=== PATIENT | male | born 1945 | race Hispanic/Latino ===

== ENCOUNTER 2016-12-06 05:51 | Inpatient (IN) | payer MEDICARE ==
[2016-12-02 10:57] LABS: Basophils % (Auto) 0.6 % (0.0-1.8); Eosinophils % (Auto) 2.8 % (0.0-4.3); Hemoglobin 13.6 gm/dl (11.8-15.2); Mean Corpuscular HGB Conc 34 % (32-34); Mean Corpuscular Hemoglobin 30 pg (28-32); Mean Corpuscular Volume 87 fl (84-94); Platelet Count 185 K/mm3 (140-440); Red Cell Distribution Width 14.1 % (13.2-15.2); White Blood Count 6.3 K/mm3 (4.5-11.0)
[2016-12-02 11:01] LABS: INR 0.96 (0.87-1.13)
[2016-12-02 11:12] LABS: Anion Gap 15 mmol/L; BUN/Creatinine Ratio 11.25; Blood Urea Nitrogen 9 mg/dL (9-20); Calcium 9.7 mg/dL (8.4-10.2); Carbon Dioxide 28 mmol/L (22-30); Chloride 98.3 mmol/L (98-107); Glucose 95 mg/dL (75-100); Potassium 4.2 mmol/L (3.6-5.0); Sodium 137 mmol/L (137-145)
--- NOTE | 2016-12-02 11:20 | Anesthesia Consultation ---
Anesthesia Consult and Med Hx Date of service: 12/02/16 - Airway Anesthetic Teeth Evaluation: Dentures, Edentulous ROM Head & Neck: Adequate Mental/Hyoid Distance: Adequate Mallampati Class: Class II Intubation Access Assessment: Probably Good (FROM) - Pulmonary Exam CTA: Yes - Cardiac Exam Cardiac Exam: RRR - Pre-Operative Health Status ASA Pre-Surgery Classification: ASA3 Proposed Anesthetic Plan: General - Pre-Anesthesia Comment Pre-Anesthesia Comments: Cardiac clearance on 12/01/16. EJ 59%. - Pulmonary Hx Smoking: Yes (Smoked for 60+ years. Formerly 4 packs/day. Currently 1 PPD.) SOB: Yes COPD: Yes (Chronic bronchitis, no inhaler use) Hx Pneumonia: Yes (in past) Hx Sleep Apnea: No - Cardiovascular System Hx Hypertension: Yes (No meds) Hx Coronary Artery Disease: Yes (s/p OK) Hx Heart Attack/AMI: Yes (1988 2x) Hx Percutaneous Transluminal Coronary Angioplasty (PTCA): Yes (within last 2 yrs , >1yr ago, 6x) Hx Cardia Arrhythmia: No Hx Peripheral Vascular Disease: Yes (claudication; s/p right AKA, s/p aorto- bifemoral bypass surgery) - Central Nervous System Hx Seizures: No CVA: Yes (mild stroke, denies residual issues) Hx Psychiatric Problems: No - Gastrointestinal Hx Gastroesophageal Reflux Disease: No - Endocrine Hx Renal Disease: No Hx Liver Disease: No Hx Non-Insulin Dependent Diabetes: No Hx Thyroid Disease: No - Hematic Hx Anemia: Yes (hx of blood transfusion in past) - Other Systems Hx Alcohol Use: Yes Hx Substance Use: No (high tolerance for percocet) Hx Cancer: No - Additional Comments Anesthesia Medical History Comments: NAC
[~2016-12-06 05:51] MED LIST: PEPCID PO NR; VERSED IV NR
[2016-12-06] MEDS ORDERED: ANCEF/STERILE WATER 2 GM/20 ML 2 GM/20 ML SYRINGE IV NR (06:00)
[2016-12-06] MEDS ORDERED: NACL BACTERIOSTATIC INFILTRATI ONE (06:19)
[2016-12-06] MEDS ORDERED: XYLOCAINE MPF 2% ONE (06:51)
[2016-12-06] MEDS ORDERED: ZEMURON IV ONE (06:51)
[2016-12-06] MEDS: NACL 0.9% 1000 ML 1,000 ML IV SCH (06:55)
[2016-12-06] MEDS ORDERED: DIPRIVAN 10 MG/ML IV ONE ×2 (07:03→07:54)
[2016-12-06] MEDS ORDERED: SUBLIMAZE ONE (07:03)
[2016-12-06] MEDS ORDERED: DILAUDID ONE (07:04)
[2016-12-06] MEDS ORDERED: PROVENTIL IH NR (07:15)
[2016-12-06] MEDS ORDERED: PAPAVERINE ONE (07:16)
[2016-12-06] MEDS ORDERED: MARCAINE 0.5% 0 ML INFILTRATI ONE (07:16)
[2016-12-06] MEDS ORDERED: PROTAMINE SULFATE ONE (07:16)
[2016-12-06] MEDS ORDERED: NACL 0.9% 250ML 0 ML ONE (07:17)
[2016-12-06] MEDS ORDERED: XYLOCAINE 1% MPF 5 mL ONE (07:17)
[2016-12-06] MEDS ORDERED: NACL ONE (07:17)
[2016-12-06] MEDS ORDERED: HEPARIN 10,000 UNITS/10 ML ONE ×2 (07:17→07:55)
[2016-12-06] MEDS ORDERED: XYLOCAINE 1%/ EPI 1:100,000 INFILTRATI ONE (07:17)
[2016-12-06] MEDS ORDERED: NACL 0.9% 1000 ML 1,000 ML ONE ×2 (07:17→09:40)
[2016-12-06] MEDS ORDERED: RIFADIN ONE (07:17)
[2016-12-06] MEDS ORDERED: GELFOAM TP ONE (07:18)
[2016-12-06] MEDS ORDERED: THROMBIN (BOVINE) TP ONE (07:18)
[2016-12-06] MEDS ORDERED: SODIUM BICARBONATE ONE (07:18)
[2016-12-06] MEDS ORDERED: NITROGLYCERIN SYRINGE 6 ML ONE (07:19)
[2016-12-06] MEDS ORDERED: PROAIR IH ONE (07:44)
[2016-12-06] MEDS ORDERED: MARCAINE-EPI/PF 0.5%-1:200,000 INFILTRATI ONE (07:45)
[2016-12-06] MEDS ORDERED: VERSED IV ONE (07:52)
[2016-12-06] MEDS ORDERED: NACL 0.9% 100 ML ONE (08:27)
[2016-12-06] MEDS ORDERED: NEO SYNEPHRINE ONE (08:27)
[2016-12-06] MEDS ORDERED: XYLOCAINE 1% 20 mL ONE (08:35)
[2016-12-06] MEDS ORDERED: XYLOCAINE 1% 20 mL INFILTRATI ONE (08:52)
[2016-12-06] MEDS ORDERED: NACL 0.9% IR ONE (08:52)
[2016-12-06] MEDS ORDERED: HEPARIN 10,000 UNITS/10 ML 4,000 UNIT in NACL 0.9% 1000 ML 1,000 ML IR ONE (08:53)
[2016-12-06] MEDS ORDERED: RIFADIN 600 MG in NACL 0.9% 50 ML IR ONE (08:54)
--- NOTE | 2016-12-06 08:54 | Admit Criteria Form ---
Admission Criteria Documentation: AMBULATORY SURGERY EXCEPTION CRITERIA Ambulatory Surgery Exception Criteria ( Place 'X' for any and all applicable criteria): Surgery or procedure performed on ambulatory basis may require inpatient stay for[A] ANY ONE of the following(1)(2)(3)(4)(5)(6)(7)(8)(9): [X] I. A preoperative situation, condition, or finding that warrants inpatient stay as indicated by ANY ONE of the following: [X] a) Inpatient care needed because of severity of a disease or condition rather than the surgery (eg, severe cardiac or respiratory disease, severe infection) (15) (16 ) (17) (18) [] b) Emergent procedure (eg, angioplasty for acute ischemia)(19) [] c) Complex surgical approach or situation as indicated by ANY ONE of the following(3): [] i) Open approach needed instead of usual endoscopic, transcatheter, or other less invasive procedure [] ii) Difficult approach because of previous operation [] iii) Airway monitoring required after open neck procedures(20)(21) [] iv) Large mass requiring unusually extensive dissection [] v) Additional complicating feature requiring inpatient care (eg, drain management)(22(23): [X] d) Major surgery in a pt with high anesthetic risk as indicated by ANY ONE of the following (2)(3)(5)(7)(8): [X] i) ASA risk class III or higher (severe systemic disease impairing function) [D] [] ii) Advanced age (eg, older than 85 years)(14)(24) [] iii) Symptomatic heart failure(25) [] iv) Symptomatic asthma or COPD(8)(21) [] v) Morbid obesity with hemodynamic or respiratory problems(20)( 21)(26)(27) [] vi) Obstructive sleep apnea(20)(21) [] vii) Former premature infants who are younger than 60 weeks [] viii) High risk for severe postoperative abnormalities (eg, severe postoperative hypocalcemia after parathyroidectomy for severe hyperparathyroidism)(27)( 28) [] ix) Unstable angina(25) [] e) Drug-related risk requiring inpatient stay as indicated by ANY ONE of the following(5)(10)(14)(32)(33) [] i) Procedure requires discontinuing drugs or other therapy (eg , antiarrhythmic medication, antiseizure medication), which necessitates inpatient observation or treatment.(18)(31) [] ii) Major surgery and high risk drug use as indicated by ANY ONE of the following: [] 1) Active abuse of cocaine or similar drug [] 2) Monoamine oxidase inhibitor use [] 3) Other drug identified as posing risk [] f) Inadequate outpatient care situation as indicated by ANY ONE of the following(5)(10)(14)(32)(33) [] i) Patient lives remote from medical facility and procedure has urgent complication potential, and temporary nearby residence cannot be arranged [] ii) Patient will have postprocedure incapacitation and inadequate assistance at home, or alternative level of care cannot be arranged. [] iii) Patient will have long general anesthesia or procedure side effect resolution time, and competent person to stay with patient on first postoperative night at home or alternative level of care cannot be arranged. []iv) Other inadequate outpatient situation that cannot be handled by other means [] II. A perioperative event, condition, or finding that warrants inpatient stay as indicated by ANY ONE of the following (1)(2)(3): [] a) Inadequate physiologic recovery: cardiovascular, respiratory, or hemodynamic status not normal or near preoperative baseline(18) [] b) Hemodynamic instability [] c) Patient not alert with near normal or baseline mental status [] d) Temperature not normal or as expected and not appropriate for outpatient treatment of condition [] e) Ambulatory or appropriate activity level status not yet achieved post procedure [E](34)(35)(36) [] f) Operative site not appropriate (eg, unexpected or excessive drainage or bleeding) [] g) Postoperative effects not resolved or adequately managed (eg, significant pain or vomiting not appropriate for outpatient or next level of care)(10)(12) [] h) Complicating features requiring inpatient care as indicated by ANY ONE of the following(37): [] i) Severe complications of procedure (eg, bowel injury, airway compromise, vascular injury,severe hemorrhage) [] ii) Extensive (eg, dissection far beyond usual scope of procedure ) or prolonged (eg, 120 minutes beyond usual) surgery needed requiring inpatient postoperative care [] iii) Conversion to an open or complex procedure that requires inpatient care (eg, open vs laparoscopic cholecystectomy, abdominal vs vaginal hysterectomy)(38) [] iv) Comorbid condition or test result identified during or post procedure that requires inpatient care (7) [] v) Malignant hyperthermia(30) [] vi) Other complicating feature requiring inpatient care(22)(23) Inpatient stay may be needed until ALL of the following are present (1)(2)(3)(4) (5)(6)(10)(14)(33)(40): []a) Physiologic recovery: cardiovascular, respiratory, and hemodynamic status normal or near preoperative baseline []b) Hemodynamic stability []c) Patient alert, with near normal or baseline mental status []d) Temperature appropriate: patient afebrile or temperature appropriate for outpt treatment of condition []e) Activity level appropriate: ambulatory or appropriate activity level post procedure []f) Operative site appropriate as indicated by ALL of the following: []i) Site dry or with expected drainage []ii) Any blood noted is as expected for procedure. []g) Postoperative effects resolved or managed as indicated by ALL of the following: []i) Pain management appropriate for outpatient (or next level of) care(10) []ii) Minimal nausea and vomiting: if present, successfully treated with oral medication(12) []iii) Headache, dizziness, or drowsiness (if present) are mild. []h) Voiding status acceptable as indicated by ANY ONE of the following: []i) Voiding spontaneously []ii) No voiding but instructions given for follow-up in 6 to 8 hours []iii) Urinary catheter in place, and instructions given for follow-up []i) Complicating features requiring inpatient care manageable at a lower level of care(37) []j) Comorbid conditions manageable at a lower level of care(37) The original [facility] content created by [employer] has been revised. The portions of the content which have been revised are identified through the use of italic text or in bold, and [facility] has neither reviewed nor approved the modified material. All other unmodified content is copyright [facility]. Please see references footnoted in the original [facility] edition 2016 Admission Criteria Met: Yes
[2016-12-06] MEDS ORDERED: ePHEDrine SULFATE ONE (09:22)
[2016-12-06] MEDS ORDERED: NARCAN 0.4 MG/1 ML IV PRN ×2 (10:35→11:54)
[2016-12-06] MEDS ORDERED: MORPHINE IV PRN (10:35)
[2016-12-06] MEDS ORDERED: ULTRAM PO PRN (10:35)
[2016-12-06] MEDS ORDERED: ZOFRAN IV PRN (10:35)
[2016-12-06] MEDS ORDERED: NORCO 7.5/325 PO PRN (10:35)
--- NOTE | 2016-12-06 10:53 | Operative Report ---
Operative Report Operative Report: Date of Procedure: 12/06/2016 Pre-operative Diagnosis: Right AKA's Ischemic Stump Pain Post-operative Diagnosis: Same Procedure(s): Left Femoral to Right Femoral Artery Bypass with 8 mm Ringed PTFE Surgeon: Natanael Bolanos M.D. Mat Cleaning Machine Operator: Krystyna Borden M.D. Anesthesia: Spinal Anesthesia, MAC EBL: 200 mL Counts: Correct Complications: None Condition: Stable Findings: Successful creation of left to right femoral bypass with excellent Doppler signal in the profunda artery on the right that augmented with compression of the graft. Specimen: Right femoral plaque and femoral anastomosis of aortobifemoral bypass graft since pathology. Indication: The patient is a 71-year-old male with a history of peripheral vascular disease and an aortobifemoral bypass graft. 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 He has had pain in the stump does not resolved and an area duplex demonstrated significantly diminished flow in the right profunda artery. There is no option for endovascular intervention so he was offered a left femoral to right femoral bypass. He was given the risks, benefits, and alternative procedures and consented to procedure. Description of Procedure: The patient was brought to the operating room and laid in supine position. He previously had spinal anesthesia placed in the preoperative area. After he was given adequate sedation his bilateral groins and thighs were prepped and draped in normal sterile fashion. Longitudinal incision was created in the right groin through his previous incision and carried down to the cade of the aortobifemoral graft by sharp dissection. I then dissected out the profunda, SFA, and common femoral artery using sharp dissection. All vessels were then controlled vessels. I created a longitudinal incision in the left groin through a previous incision and carried this down to the left limb of the aortobifemoral graft and controlled the limb with 2 vessels. I dissected down to the anterior abdominal wall bilaterally and created a subcutaneous tunnel along the anterior surface of the abdominal wall just above the pubic symphysis and then pulled the 8 mm ringed PTFE through the tunnel. The graft was in position to ensure that there was no kinking or twisting. At this point systemically heparinized the patient with IV heparin. The used 2 Satinsky clamps to control flow in the left aortobifemoral limb and created a arteriotomy using 11 blade and Owens scissors. I beveled the graft and created an end to side anastomosis using 2 5-0 Prolene running fashion. After completing the anastomosis I removed the clamps allow flow into the graft which had excellent inflow. I then clamped the graft near the anastomosis and packed the groin with quick clot to achieve hemostasis. I then cut the graft to length and removed the rings on the distal half of the graft. I transected the previous aortobifemoral bypass graft off of the femoral anastomosis. Multi, from artery was occluded as well as the SFA and profunda artery. A Davin knife was then used to free the plaque from the arterial wall at this point there was some backbleeding noted from the profunda artery. I beveled the graft and then created end to side anastomosis using 2 6-0 Prolene as a running fashion. Prior to completing the anastomosis I flushed the arterial inflow as well as the profunda artery and then flushed the graft with heparinized saline. I completed the anastomosis in the area removed all clamps allow flow into the profunda artery which had an excellent multiphasic Doppler signal that augmented with compression of the graft. Hemostasis within the wound was achieved with a combination of quick clot and FloSeal. Once hemostasis was achieved both groins were closed in 3 layers using a 3-0 Vicryl running fashion and the deep layer, 3-0 Vicryl running fashion deep dermal layer, and a 4-0 Monocryl in running fashion subcuticular. Both wounds were then dressed with Dermabond. The patient tolerated the procedure well. All sponge, needle, and instrument counts were correct. The patient was taken to the recovery area in stable condition.
[2016-12-06] MEDS ORDERED: SODIUM CHLORIDE FLUSH SYRINGE 10 ML IV PRN (11:54)
--- NOTE | 2016-12-06 11:57 | Post Anesthesia Evaluation ---
- Post Anesthesia Evaluation Patient Participated: Yes Airway Patent: Yes Stable Respiratory Function: Yes Nausea/Vomiting: No Temp > 96.8F: Yes Pain Manageable: Yes Adequeate Hydration: Yes Anesthesia Complications: No
[2016-12-06] MEDS ORDERED: NON-FORMULARY (Gabapentin [Gralise] 300 MG) PO SCH (14:00)
[2016-12-06] MEDS: NEURONTIN PO SCH (14:17)
[2016-12-06] MEDS: MORPHINE IV PRN (17:40)
[2016-12-06] MEDS: SUBLIMAZE 500 MCG in NACL 0.9% 90 ML EPIDURAL SCH (18:52)
[2016-12-07 06:16] LABS: Hematocrit 31.8 % (35.5-45.6); Hemoglobin 10.7 gm/dl (11.8-15.2)
[2016-12-07] MEDS: NACL 0.9% 1000 ML 1,000 ML IV SCH (06:22)
[2016-12-07] MEDS: NEURONTIN PO SCH ×3 (06:27→23:23)
[2016-12-07 06:29] LABS: Anion Gap 15 mmol/L; BUN/Creatinine Ratio 7.14; Blood Urea Nitrogen 5 mg/dL (9-20); Calcium 7.9 mg/dL (8.4-10.2); Carbon Dioxide 25 mmol/L (22-30); Chloride 103.9 mmol/L (98-107); Glucose 91 mg/dL (75-100); Potassium 3.7 mmol/L (3.6-5.0); Sodium 140 mmol/L (137-145)
[2016-12-07] MEDS: SUBLIMAZE 500 MCG in NACL 0.9% 90 ML EPIDURAL SCH (06:50)
--- NOTE | 2016-12-07 11:59 | Consultation ---
History of Present Illness - Reason for Consult Consult date: 12/07/16 ICU management Requesting physician: MELISA MCNEIL - History of Present Illness 71 y/o male status post vascular surgery admitted for monitoring in ICU. No acute events. BP stable. Has epidural in that is about to be removed. Remainder is negative. Past History Past Medical History: hyperlipidemia, other (neuropathy) Past Surgical History: Other (aka) Medications and Allergies Allergies Allergy/AdvReac Type Severity Reaction Status Date / Time No Known Allergies Allergy Unverified 04/23/16 15:21 Home Medications Medication Instructions Recorded Confirmed Last Taken Type HYDROcodone/APAP 7.5-325 [Hinkle 1 each PO Q6HR PRN #60 tablet 05/12/16 11/23/16 12/05/16 Rx 7.5/325] AtorvaSTATin [Lipitor] 40 mg PO QDAY 11/23/16 11/23/16 12/05/16 History Gabapentin [Gralise] 300 mg PO TID 11/23/16 11/23/16 12/05/16 History traMADol [Ultram] 50 mg PO Q4HR PRN 11/23/16 11/23/16 12/05/16 History Active Meds: Active Medications Acetaminophen/Hydrocodone Bitart (Hinkle 7.5/325) 1 each PO Q6HR PRN PRN Reason: Pain, Moderate (4-6) Atorvastatin Calcium (Lipitor) 40 mg PO QDAY [facility] Last Admin: 12/07/16 09:08 Dose: 40 mg Enoxaparin Sodium (Lovenox) 40 mg SUB-Q QDAY@0800 KISHA Gabapentin (Neurontin) 300 mg PO Q8HR KISHA Last Admin: 12/07/16 06:27 Dose: 300 mg Sodium Chloride (Nacl 0.9% 1000 Ml) 1,000 mls @ 42 mls/hr IV DIRECT KISHA Last Admin: 12/07/16 06:22 Dose: 42 mls/hr Fentanyl 500 mcg/ Sodium (Chloride) 100 mls @ 8 mls/hr EPIDURAL DIRECT KISHA PRN Reason: Protocol Last Infusion: 12/07/16 08:00 Dose: 8 mls/hr Sodium Chloride (Nacl 0.9% 1000 Ml) 1,000 mls @ 75 mls/hr IV DIRECT KISHA Morphine Sulfate (Morphine) 2 mg IV Q4H PRN PRN Reason: Pain, Moderate (4-6) Last Admin: 12/06/16 15:12 Dose: 2 mg Morphine Sulfate (Morphine) 4 mg IV Q4H PRN PRN Reason: Pain , Severe (7-10) Last Admin: 12/06/16 17:40 Dose: 4 mg Naloxone HCl (Narcan 0.4 Mg/1 Ml) 0.1 mg IV Q2MIN PRN PRN Reason: Res Rate </= 8 or 02 SAT < 92% Ondansetron HCl (Zofran) 4 mg IV Q8H PRN PRN Reason: Nausea And Vomiting Sodium Chloride (Sodium Chloride Flush Syringe 10 Ml) 10 ml IV PRN PRN PRN Reason: LINE FLUSH Tramadol HCl (Ultram) 50 mg PO Q4HR PRN PRN Reason: Pain Review of Systems All systems: negative Exam - Constitutional Vitals: Temp Pulse Resp BP Pulse Ox 98.9 F 94 H 20 93/54 99 12/07/16 08:00 12/07/16 10:10 12/07/16 10:10 12/07/16 10:10 12/07/16 10:43 General appearance: Present: no acute distress - EENT Eyes: Present: PERRL, EOM intact ENT: hearing intact, clear oral mucosa - Neck Neck: Present: supple, normal ROM - Respiratory Respiratory effort: normal Respiratory: bilateral: CTA - Cardiovascular Rhythm: regular Heart Sounds: Present: S1 & S2 - Extremities Extremities: abnormal (aka) - Abdominal General gastrointestinal: Present: soft, non-tender, normal bowel sounds Results - Labs CBC & Chem 7: 12/07/16 05:31 12/07/16 05:31 Labs: Abnormal lab results 12/07/16 12/07/16 Range/Units 05:31 05:31 Hgb 10.7 L (11.8-15.2) gm/dl Hct 31.8 L (35.5-45.6) % BUN 5 L (9-20) mg/dL Creatinine 0.7 L (0.8-1.5) mg/dL Calcium 7.9 L D (8.4-10.2) mg/dL Assessment and Plan 71 y/o male with PVD status post vascular surgery. 1. Epidural removal 2. OOB to chair 3. Hopeful they can be moved out of ICU today.
[2016-12-07] MEDS ORDERED: NACL 0.9% 1000 ML 1,000 ML IV SCH (12:00)
[2016-12-07] MEDS: LOVENOX SUB-Q SCH (14:10)
--- NOTE | 2016-12-07 15:04 | Progress Note ---
Assessment and Plan Pt s/p Fem-Fem bypass. His castro and Epideral were removed earlier this am. Bp remains a little low. Not drinking much, continue IVF for now. Hold transfer out of ICU until VS improved. - Patient Problems (1) Atherosclerosis of [place] arteries of the extremities with rest pain Current Visit: No Status: Acute Qualifiers: Peripheral atherosclerosis location: P Laterality: L Subjective Date of service: 12/07/16 Interval history: Pt eval'd early this am. Mild incisional and tunnel pain. Well tolerated. Attempted to get OOB with nurses help this am, but felt unsteady and requested to get back in bed. Objective - Constitutional Vitals: Vital Signs - 12hr 12/07/16 12/07/16 12/07/16 03:00 03:10 03:20 Temperature Pulse Rate 83 85 86 Respiratory 14 12 13 Rate Blood Pressure 108/56 108/56 108/56 O2 Sat by Pulse 96 96 96 Oximetry 12/07/16 12/07/16 12/07/16 03:30 03:40 03:50 Temperature Pulse Rate 84 90 82 Respiratory 13 13 13 Rate Blood Pressure 108/56 108/56 108/56 O2 Sat by Pulse 98 98 97 Oximetry 12/07/16 12/07/16 12/07/16 04:00 04:10 04:20 Temperature 98.5 F Pulse Rate 88 85 84 Respiratory 14 14 13 Rate Blood Pressure 92/56 92/56 92/56 O2 Sat by Pulse 96 96 96 Oximetry 12/07/16 12/07/16 12/07/16 04:30 04:40 04:50 Temperature Pulse Rate 83 87 85 Respiratory 13 13 13 Rate Blood Pressure 92/56 92/56 92/56 O2 Sat by Pulse 96 97 96 Oximetry 12/07/16 12/07/16 12/07/16 05:00 05:10 05:20 Temperature Pulse Rate 82 84 83 Respiratory 12 14 12 Rate Blood Pressure 101/57 101/57 101/57 O2 Sat by Pulse 95 95 Oximetry 12/07/16 12/07/16 12/07/16 05:30 05:40 05:50 Temperature Pulse Rate 91 H 98 H 95 H Respiratory 11 L 16 15 Rate Blood Pressure 101/57 101/57 101/57 O2 Sat by Pulse 98 99 99 Oximetry 12/07/16 12/07/16 12/07/16 06:00 06:10 06:20 Temperature Pulse Rate 92 H 93 H 93 H Respiratory 22 19 18 Rate Blood Pressure 109/55 109/55 109/55 O2 Sat by Pulse 96 96 95 Oximetry 12/07/16 12/07/16 12/07/16 06:30 06:40 06:50 Temperature Pulse Rate 87 91 H 90 Respiratory 16 18 16 Rate Blood Pressure 109/55 109/55 109/55 O2 Sat by Pulse 94 94 93 Oximetry 12/07/16 12/07/16 12/07/16 07:00 07:10 07:20 Temperature Pulse Rate 90 97 H 87 Respiratory 16 13 16 Rate Blood Pressure 88/51 99/54 99/54 O2 Sat by Pulse 94 97 95 Oximetry 12/07/16 12/07/16 12/07/16 07:30 07:40 07:50 Temperature Pulse Rate 91 H 96 H 90 Respiratory 20 17 18 Rate Blood Pressure 99/54 99/54 99/54 O2 Sat by Pulse 96 94 97 Oximetry 12/07/16 12/07/16 12/07/16 08:00 08:10 08:20 Temperature 98.9 F Pulse Rate 89 90 87 Respiratory 17 14 16 Rate Blood Pressure 108/57 108/57 108/57 O2 Sat by Pulse 97 95 94 Oximetry 12/07/16 12/07/16 12/07/16 08:30 08:40 08:50 Temperature Pulse Rate 92 H 97 H 97 H Respiratory 18 17 17 Rate Blood Pressure 108/57 108/57 108/57 O2 Sat by Pulse 97 96 96 Oximetry 12/07/16 12/07/16 12/07/16 09:00 09:10 09:20 Temperature Pulse Rate 100 H 101 H 99 H Respiratory 21 21 19 Rate Blood Pressure 118/67 118/67 118/67 O2 Sat by Pulse 96 97 96 Oximetry 12/07/16 12/07/16 12/07/16 09:30 09:40 09:50 Temperature Pulse Rate 98 H 94 H 99 H Respiratory 20 14 25 H Rate Blood Pressure 118/67 118/67 118/67 O2 Sat by Pulse 96 96 97 Oximetry 12/07/16 12/07/16 12/07/16 10:00 10:10 10:20 Temperature Pulse Rate 91 H 94 H 89 Respiratory 18 20 19 Rate Blood Pressure 93/54 93/54 93/54 O2 Sat by Pulse 95 96 95 Oximetry 12/07/16 12/07/16 12/07/16 10:30 10:40 10:43 Temperature Pulse Rate 90 92 H Respiratory 20 17 Rate Blood Pressure 93/54 93/54 O2 Sat by Pulse 96 97 99 Oximetry 12/07/16 12/07/16 12/07/16 10:50 11:00 11:10 Temperature Pulse Rate 110 H 90 97 H Respiratory 17 23 20 Rate Blood Pressure 93/54 88/56 93/54 O2 Sat by Pulse 98 96 97 Oximetry 12/07/16 12/07/16 12/07/16 11:20 11:30 11:40 Temperature Pulse Rate 100 H 94 H 98 H Respiratory 15 14 20 Rate Blood Pressure 93/54 93/54 93/54 O2 Sat by Pulse 97 96 96 Oximetry 12/07/16 12/07/16 12/07/16 11:50 12:00 12:10 Temperature 98.5 F Pulse Rate 105 H 92 H 102 H Respiratory 23 18 19 Rate Blood Pressure 93/54 88/55 88/55 O2 Sat by Pulse 96 95 97 Oximetry 12/07/16 12/07/16 12/07/16 12:20 12:30 12:40 Temperature Pulse Rate 97 H 96 H 92 H Respiratory 19 21 21 Rate Blood Pressure 94/45 94/45 94/45 O2 Sat by Pulse 98 97 97 Oximetry 12/07/16 12/07/16 12/07/16 12:50 13:00 13:10 Temperature Pulse Rate 94 H 93 H 94 H Respiratory 18 20 19 Rate Blood Pressure 94/45 104/50 104/50 O2 Sat by Pulse 100 99 97 Oximetry 12/07/16 12/07/16 12/07/16 13:20 13:30 13:40 Temperature Pulse Rate 91 H 92 H 92 H Respiratory 18 17 17 Rate Blood Pressure 104/50 104/50 104/50 O2 Sat by Pulse 99 96 94 Oximetry 12/07/16 12/07/16 12/07/16 13:50 14:00 14:10 Temperature Pulse Rate 91 H 86 100 H Respiratory 20 18 25 H Rate Blood Pressure 104/50 101/58 101/58 O2 Sat by Pulse 95 95 97 Oximetry General appearance: Present: no acute distress - EENT Eyes: EOM intact ENT: hearing intact - Respiratory Respiratory effort: normal Extremities: no ischemia, pulses intact (Palp DP on the left), normal temperature, abnormal (AKA on the right) - Neurologic Neurologic: no focal deficits - Psychiatric Psychiatric: appropriate mood/affect, intact judgment & insight, cooperative - Labs CBC & Chem 7: 12/07/16 05:31 12/07/16 05:31 Labs: Abnormal lab results 12/07/16 12/07/16 Range/Units 05:31 05:31 Hgb 10.7 L (11.8-15.2) gm/dl Hct 31.8 L (35.5-45.6) % BUN 5 L (9-20) mg/dL Creatinine 0.7 L (0.8-1.5) mg/dL Calcium 7.9 L D (8.4-10.2) mg/dL
--- NOTE | 2016-12-07 15:37 | Progress Note ---
Subjective Date of service: 12/07/16 Interval history: 1st POD after femoral-femoral bypass Patient is in the bed, comfortable. Pain is well controlled with pain meds. Still has epidural infusion running at 8 ml/h. Decided to discontinue epidural catheter and start anticoagulation later. No anesthesia complications Objective - Constitutional Vitals: Vital Signs - 12hr 12/07/16 12/07/16 12/07/16 03:40 03:50 04:00 Temperature 98.5 F Pulse Rate 90 82 88 Respiratory 13 13 14 Rate Blood Pressure 108/56 108/56 92/56 O2 Sat by Pulse 98 97 96 Oximetry 12/07/16 12/07/16 12/07/16 04:10 04:20 04:30 Temperature Pulse Rate 85 84 83 Respiratory 14 13 13 Rate Blood Pressure 92/56 92/56 92/56 O2 Sat by Pulse 96 96 96 Oximetry 12/07/16 12/07/16 12/07/16 04:40 04:50 05:00 Temperature Pulse Rate 87 85 82 Respiratory 13 13 12 Rate Blood Pressure 92/56 92/56 101/57 O2 Sat by Pulse 97 96 Oximetry 12/07/16 12/07/16 12/07/16 05:10 05:20 05:30 Temperature Pulse Rate 84 83 91 H Respiratory 14 12 11 L Rate Blood Pressure 101/57 101/57 101/57 O2 Sat by Pulse 95 95 98 Oximetry 12/07/16 12/07/16 12/07/16 05:40 05:50 06:00 Temperature Pulse Rate 98 H 95 H 92 H Respiratory 16 15 22 Rate Blood Pressure 101/57 101/57 109/55 O2 Sat by Pulse 99 99 96 Oximetry 12/07/16 12/07/16 12/07/16 06:10 06:20 06:30 Temperature Pulse Rate 93 H 93 H 87 Respiratory 19 18 16 Rate Blood Pressure 109/55 109/55 109/55 O2 Sat by Pulse 96 95 94 Oximetry 12/07/16 12/07/16 12/07/16 06:40 06:50 07:00 Temperature Pulse Rate 91 H 90 90 Respiratory 18 16 16 Rate Blood Pressure 109/55 109/55 88/51 O2 Sat by Pulse 94 93 94 Oximetry 12/07/16 12/07/16 12/07/16 07:10 07:20 07:30 Temperature Pulse Rate 97 H 87 91 H Respiratory 13 16 20 Rate Blood Pressure 99/54 99/54 99/54 O2 Sat by Pulse 97 95 96 Oximetry 12/07/16 12/07/16 12/07/16 07:40 07:50 08:00 Temperature 98.9 F Pulse Rate 96 H 90 89 Respiratory 17 18 17 Rate Blood Pressure 99/54 99/54 108/57 O2 Sat by Pulse 94 97 97 Oximetry 12/07/16 12/07/16 12/07/16 08:10 08:20 08:30 Temperature Pulse Rate 90 87 92 H Respiratory 14 16 18 Rate Blood Pressure 108/57 108/57 108/57 O2 Sat by Pulse 95 94 97 Oximetry 12/07/16 12/07/16 12/07/16 08:40 08:50 09:00 Temperature Pulse Rate 97 H 97 H 100 H Respiratory 17 17 21 Rate Blood Pressure 108/57 108/57 118/67 O2 Sat by Pulse 96 96 96 Oximetry 12/07/16 12/07/16 12/07/16 09:10 09:20 09:30 Temperature Pulse Rate 101 H 99 H 98 H Respiratory 21 19 20 Rate Blood Pressure 118/67 118/67 118/67 O2 Sat by Pulse 97 96 96 Oximetry 12/07/16 12/07/16 12/07/16 09:40 09:50 10:00 Temperature Pulse Rate 94 H 99 H 91 H Respiratory 14 25 H 18 Rate Blood Pressure 118/67 118/67 93/54 O2 Sat by Pulse 96 97 95 Oximetry 12/07/16 12/07/16 12/07/16 10:10 10:20 10:30 Temperature Pulse Rate 94 H 89 90 Respiratory 20 19 20 Rate Blood Pressure 93/54 93/54 93/54 O2 Sat by Pulse 96 95 96 Oximetry 12/07/16 12/07/16 12/07/16 10:40 10:43 10:50 Temperature Pulse Rate 92 H 110 H Respiratory 17 17 Rate Blood Pressure 93/54 93/54 O2 Sat by Pulse 97 99 98 Oximetry 12/07/16 12/07/16 12/07/16 11:00 11:10 11:20 Temperature Pulse Rate 90 97 H 100 H Respiratory 23 20 15 Rate Blood Pressure 88/56 93/54 93/54 O2 Sat by Pulse 96 97 97 Oximetry 12/07/16 12/07/16 12/07/16 11:30 11:40 11:50 Temperature Pulse Rate 94 H 98 H 105 H Respiratory 14 20 23 Rate Blood Pressure 93/54 93/54 93/54 O2 Sat by Pulse 96 96 96 Oximetry 12/07/16 12/07/16 12/07/16 12:00 12:10 12:20 Temperature 98.5 F Pulse Rate 92 H 102 H 97 H Respiratory 18 19 19 Rate Blood Pressure 88/55 88/55 94/45 O2 Sat by Pulse 95 97 98 Oximetry 12/07/16 12/07/16 12/07/16 12:30 12:40 12:50 Temperature Pulse Rate 96 H 92 H 94 H Respiratory 21 21 18 Rate Blood Pressure 94/45 94/45 94/45 O2 Sat by Pulse 97 97 100 Oximetry 12/07/16 12/07/16 12/07/16 13:00 13:10 13:20 Temperature Pulse Rate 93 H 94 H 91 H Respiratory 20 19 18 Rate Blood Pressure 104/50 104/50 104/50 O2 Sat by Pulse 99 97 99 Oximetry 12/07/16 12/07/16 12/07/16 13:30 13:40 13:50 Temperature Pulse Rate 92 H 92 H 91 H Respiratory 17 17 20 Rate Blood Pressure 104/50 104/50 104/50 O2 Sat by Pulse 96 94 95 Oximetry 12/07/16 12/07/16 12/07/16 14:00 14:10 14:20 Temperature Pulse Rate 86 100 H 89 Respiratory 18 25 H 19 Rate Blood Pressure 101/58 101/58 101/58 O2 Sat by Pulse 95 97 97 Oximetry 12/07/16 12/07/16 12/07/16 14:30 14:40 14:50 Temperature Pulse Rate 91 H 93 H 91 H Respiratory 19 20 18 Rate Blood Pressure 101/58 101/58 101/58 O2 Sat by Pulse 96 96 96 Oximetry 12/07/16 12/07/16 15:00 15:10 Temperature Pulse Rate 89 97 H Respiratory 19 20 Rate Blood Pressure 101/60 101/60 O2 Sat by Pulse 96 98 Oximetry - Labs CBC & Chem 7: 12/07/16 05:31 12/07/16 05:31 Labs: Abnormal lab results 12/07/16 12/07/16 Range/Units 05:31 05:31 Hgb 10.7 L (11.8-15.2) gm/dl Hct 31.8 L (35.5-45.6) % BUN 5 L (9-20) mg/dL Creatinine 0.7 L (0.8-1.5) mg/dL Calcium 7.9 L D (8.4-10.2) mg/dL
[2016-12-07] MEDS: MORPHINE IV PRN (23:48)
[2016-12-08] MEDS: NEURONTIN PO SCH (06:51)
--- NOTE | 2016-12-08 09:13 | Progress Note ---
Assessment and Plan Pt doing well. VS improved and stable. Pt feels great and wants to go home. D/c instructions given and rx for norco written. Pt to f/u in 2wks as previously scheduled. - Patient Problems (1) Atherosclerosis of [place] arteries of the extremities with rest pain Current Visit: No Status: Acute Qualifiers: Peripheral atherosclerosis location: P Laterality: L Subjective Date of service: 12/08/16 Interval history: Pt awake and alert. Feels great, and wants to go. Objective - Constitutional Vitals: Vital Signs - 12hr 12/07/16 12/07/16 12/07/16 22:00 23:00 23:20 Temperature Pulse Rate 93 H 85 Respiratory 20 17 Rate Respiratory 20 Rate [Lower Abdomen] Respiratory 20 Rate [Right Leg ] Blood Pressure 138/66 114/43 O2 Sat by Pulse 96 94 Oximetry 12/07/16 12/07/16 12/08/16 23:23 23:48 00:00 Temperature 98.6 F Pulse Rate 102 H Respiratory 10 L 19 19 Rate Respiratory Rate [Lower Abdomen] Respiratory Rate [Right Leg ] Blood Pressure 144/60 O2 Sat by Pulse 97 Oximetry 12/08/16 12/08/16 12/08/16 00:18 00:23 01:00 Temperature Pulse Rate 86 Respiratory 20 20 14 Rate Respiratory Rate [Lower Abdomen] Respiratory Rate [Right Leg ] Blood Pressure 139/61 O2 Sat by Pulse 94 Oximetry 12/08/16 12/08/16 12/08/16 02:00 03:00 04:00 Temperature 98.1 F Pulse Rate 88 84 84 Respiratory 17 14 14 Rate Respiratory Rate [Lower Abdomen] Respiratory Rate [Right Leg ] Blood Pressure 124/57 117/54 103/39 O2 Sat by Pulse 92 95 95 Oximetry 12/08/16 12/08/16 12/08/16 05:00 06:00 07:00 Temperature Pulse Rate 80 84 79 Respiratory 16 19 14 Rate Respiratory Rate [Lower Abdomen] Respiratory Rate [Right Leg ] Blood Pressure 118/47 118/47 128/57 O2 Sat by Pulse 96 95 96 Oximetry 12/08/16 07:53 Temperature 98.3 F Pulse Rate Respiratory Rate Respiratory Rate [Lower Abdomen] Respiratory Rate [Right Leg ] Blood Pressure O2 Sat by Pulse Oximetry General appearance: Present: no acute distress - EENT Eyes: EOM intact ENT: hearing intact - Neck Neck: supple - Respiratory Respiratory effort: normal Extremities: no ischemia, pulses intact (palp dp on the left), abnormal (pre- existing AKA on the right.) Extremity abnormal: other (incisions intact without erythema or drainage) - Neurologic Neurologic: no focal deficits - Psychiatric Psychiatric: appropriate mood/affect, intact judgment & insight, cooperative - Labs CBC & Chem 7: 12/07/16 05:31 12/07/16 05:31
--- NOTE | 2016-12-08 09:14 | Short Stay Summary ---
Short Stay Documentation - History H&P: obtained from office Past Medical History: hyperlipidemia, other (neuropathy) Past Surgical History: Other (aka) - Allergies and Medications Current Medications: Allergies No Known Allergies Allergy (Unverified 04/23/16 15:21) Home Medications Medication Instructions Recorded Confirmed Last Taken Type HYDROcodone/APAP 7.5-325 [[place] 1 each PO Q6HR PRN #60 tablet 05/12/16 11/23/16 12/05/16 Rx 7.5/325] AtorvaSTATin [Lipitor] 40 mg PO QDAY 11/23/16 11/23/16 12/05/16 History Gabapentin [Gralise] 300 mg PO TID 11/23/16 11/23/16 12/05/16 History traMADol [Ultram] 50 mg PO Q4HR PRN 11/23/16 11/23/16 12/05/16 History HYDROcodone/APAP 5-325 [[place] 1 - 2 each PO Q6HR PRN #60 tablet 12/08/16 Unknown Rx 5/325] Active Medications Acetaminophen/Hydrocodone Bitart ([place] 7.5/325) 1 each PO Q6HR PRN PRN Reason: Pain, Moderate (4-6) Last Admin: 12/07/16 18:24 Dose: 1 each Atorvastatin Calcium (Lipitor) 40 mg PO QDAY [facility] Last Admin: 12/07/16 09:08 Dose: 40 mg Enoxaparin Sodium (Lovenox) 40 mg SUB-Q QDAY@0800 [facility] Last Admin: 12/07/16 14:10 Dose: 40 mg Gabapentin (Neurontin) 300 mg PO Q8HR [facility] Last Admin: 12/08/16 06:51 Dose: 300 mg Sodium Chloride (Nacl 0.9% 1000 Ml) 1,000 mls @ 42 mls/hr IV DIRECT [facility] Last Admin: 12/07/16 06:22 Dose: 42 mls/hr Fentanyl 500 mcg/ Sodium (Chloride) 100 mls @ 8 mls/hr EPIDURAL DIRECT [facility] PRN Reason: Protocol Last Infusion: 12/07/16 10:45 Dose: 0 mls/hr Sodium Chloride (Nacl 0.9% 1000 Ml) 1,000 mls @ 75 mls/hr IV DIRECT [facility] Last Admin: 12/07/16 20:00 Dose: 75 mls/hr Morphine Sulfate (Morphine) 2 mg IV Q4H PRN PRN Reason: Pain, Moderate (4-6) Last Admin: 12/06/16 15:12 Dose: 2 mg Morphine Sulfate (Morphine) 4 mg IV Q4H PRN PRN Reason: Pain , Severe (7-10) Last Admin: 12/07/16 23:48 Dose: 4 mg Naloxone HCl (Narcan 0.4 Mg/1 Ml) 0.1 mg IV Q2MIN PRN PRN Reason: Res Rate </= 8 or 02 SAT < 92% Ondansetron HCl (Zofran) 4 mg IV Q8H PRN PRN Reason: Nausea And Vomiting Sodium Chloride (Sodium Chloride Flush Syringe 10 Ml) 10 ml IV PRN PRN PRN Reason: LINE FLUSH Tramadol HCl (Ultram) 50 mg PO Q4HR PRN PRN Reason: Pain Last Admin: 12/07/16 23:23 Dose: 50 mg - Physical exam Extremities: no ischemia, pulses intact (Palp DP on the left), normal temperature, abnormal (AKA on the right) - Brief post op/procedure progress note Procedure: Operative Report Operative Report: Date of Procedure: 12/06/2016 Pre-operative Diagnosis: Right AKA's Ischemic Stump Pain Post-operative Diagnosis: Same Procedure(s): Left Femoral to Right Femoral Artery Bypass with 8 mm Ringed PTFE Surgeon: Natanael Bolanos M.D. Tire Wrapper: Krystyna Borden M.D. Anesthesia: Spinal Anesthesia, MAC EBL: 200 mL Counts: Correct Complications: None Condition: Stable Findings: Successful creation of left to right femoral bypass with excellent Doppler signal in the [place] artery on the right that augmented with compression of the graft. Specimen: Right femoral plaque and femoral anastomosis of aortobifemoral bypass graft since pathology. Indication: The patient is a 71-year-old male with a history of peripheral vascular disease and an aortobifemoral bypass graft. 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 He has had pain in the stump does not resolved and an area duplex demonstrated significantly diminished flow in the right [place] artery. There is no option for endovascular intervention so he was offered a left femoral to right femoral bypass. He was given the risks, benefits, and alternative procedures and consented to procedure. - Disposition Condition at discharge: Stable Disposition: DISCHARGED TO HOME OR SELFCARE - Discharge Diagnoses (1) Atherosclerosis of [place] arteries of the extremities with rest pain Status: Acute Qualifiers: Peripheral atherosclerosis location: P Laterality: L Short Stay Discharge Plan Activity: advance as tolerated Weight Bearing Status: Weight Bear as Tolerated Diet: regular Wound: keep clean and dry Follow up with: NATANAEL BOLANOS MD [Staff Physician] - 14 Days Prescriptions: HYDROcodone/APAP 5-325 [[place] 5/325] 1 - 2 each PO Q6HR PRN #60 tablet PRN Reason: Pain
[2016-12-08] MEDS: LOVENOX SUB-Q SCH (10:09)
[2016-12-08 10:26] VITALS: BP 138/61
== END 2016-12-08 12:15 | disposition home or self-care (01) | DRG 254 ==
LOC: 3A 05:51 → CC1 11:07
PROVIDERS: ADMIT Surgery Vascular Surgery; ATTEND Surgery Vascular Surgery
PROC: 041L0JH Bypass Left Femoral Artery to Right Femoral Artery with Synthetic Substitute, Open Approach (ICD-10-PCS; principal; 2016-12-06)
DX: I70.223 Atherosclerosis of native arteries of extremities with rest pain, bilateral legs (principal); T87.89 Other complications of amputation stump; F17.210 Nicotine dependence, cigarettes, uncomplicated; J44.9 Chronic obstructive pulmonary disease, unspecified; I10 Essential (primary) hypertension; I25.10 Atherosclerotic heart disease of native coronary artery without angina pectoris; D64.9 Anemia, unspecified; Y83.9 Surgical procedure, unspecified as the cause of abnormal reaction of the patient, or of later complication, without mention of misadventure at the time of the procedure; E78.5 Hyperlipidemia, unspecified; I25.2 Old myocardial infarction; Z89.611 Acquired absence of right leg above knee; Z86.73 Personal history of transient ischemic attack (TIA), and cerebral infarction without residual deficits
CPT/HCPCS: 36415; 62324; 80048; 85014; 85018; 85025; 85610; 86850; 86900; 86901; 88304; 88311; A4649; A9270-GY; C1768; J0690; J1170; J1644; J1650; J2250; J2270; J2370; J2440; J2704; J2720; J3010; J3490; J7030; J7050